=== PATIENT | female | born 1955 | race Caucasian/White ===

== ENCOUNTER 2021-08-22 16:47 | Emergency (ER) | payer OTHER ==
--- OUTSIDE RECORDS SUMMARY | 2021-08-22 16:52 | XMS REPORT | Continuity of Care Document ---
:1955 Author Organization [facility] t Address [address] [place] [address] Care Team Providers Name Role Phone Julia Primary Care Physician Kait Treviño MA Attending Clinician Unavailable Emre VALE Attending Clinician Payers Payer Name Policy Type Policy Number Effective Date Expiration Date S ource Problems Condition Condition Condition Status Onset Resolution Last Treating Co mments Source Name Details Category Date Date Treatment Clinician Date Vaginal Vaginal Disease Active 2020-06 Univers atrophy atrophy 0-17 ity of 00:00: [place] 00 Medical Branch Osteopenia Osteopenia Disease Active 2020-06 U nivers , , 0-17 [place]specif[place] 00 [place] dical Branch Allergies, Adverse Reactions, Alerts Allergy Allergy Status Severity Reaction(s) Onset Inactive Treating Comm ents Source Name Type Date Date Clinician Ciproflo Propensi Active Swelling 2020-06 Univ ers xacin ty to 0-14 ity of (Bulk) adverse 00:00: [place] reaction 00 Medical s Branch Cephalex Propensi Active Swelling 2020-06 Univ ers in ty to 0-14 ity of adverse 00:00: [place] reaction 00 Medical s Branch Social History Social Habit Start Date Stop Date Quantity Comments Source Exposure to Not sure University of SARS-CoV-2 [facility] (event) Branch Tobacco use and 2021-03-23 2021-03-23 Never used Universit y of exposure 00:00:00 00:00:00 [facility] Alcohol intake 2021-03-23 2021-03-23 Current drinker Unive rsity of 00:00:00 00:00:00 of alcohol [facility] (finding) Branch Sex Ass[birth year] [facility] 00:00:00 00:00:00 Smoking Status Start Date Stop Date Source Tobacco smoking consumption Meth [place] [facility] unknown Never smoker [facility] Branch Medications Ordered Filled Start Stop Current Ordering Indication Dosage Frequency Signature Comments Components Source Medication Medication Date Date Medication? Clinician (SIG) Name Name estradioL 2020-06 Yes [id number] 2g Insert 2 g Univers 0.01 % (0.1 0-22 into [place] mg/gram[place] bed[place] Medical cream Every Branch night for 2 weeks, then every other night for 2 weeks, then 2-3 times per week estradioL 2020-06 Yes [id number] 2g Insert 2 g Univers 0.01 % (0.1 0-22 into it[place] of mg/gram) 00:[place] vaginal 00 bedtime. Medical cream Every Branch night for 2 weeks, then every other night for 2 weeks, then 2-3 times per week ascorbic 2020-06 Yes Take by Unive rs acid 0-14 mouth. ity of (VITAMIN C 14:18: [place] ORAL) [address] [place] [address] calcium 2020-06 Yes Take by Univer s carbonate/v 0-14 mouth. ity of itamin D3 14:18: [place] ([place] [address] Medical D-3 ORAL) [place] CALCIUM 2020-06 Yes Take by Univer s ORAL 0-14 mouth. ity of 14:18: [address] tioconazole 2020-06 Yes Insert Univ ers (VAGISTAT-1 0-14 into ity of VAGINAL) 14:18: vagina. [address] ascorbic 2020-06 Yes Take by Unive rs acid 0-14 mouth. ity of (VITAMIN C 14:18: [place] ORAL) [address] [place] [address] calcium 2020-06 Yes Take by Univer s carbonate/v 0-14 mouth. ity of itamin D3 14:18: [place] (VITAMIN Medical D-3 ORAL) [place] CALCIUM 2020-06 Yes Take by Univer s ORAL 0-14 mouth. ity of 14:18: [address] tioconazole 2020-06 Yes Insert Univ ers (VAGISTAT-1 0-14 into ity of VAGINAL) 14:18: vagina. [address] ascorbic 2020-06 Yes Take by Unive rs acid 0-14 mouth. ity of (VITAMIN C 14:18: [place] ORAL) [address] [place] [address] calcium 2020-06 Yes Take by Univer s carbonate/v 0-14 mouth. ity of itamin D3 14:18: [place] (VITAMIN Medical D-3 ORAL) [place] CALCIUM 2020-06 Yes Take by Univer s ORAL 0-14 mouth. ity of 14:18: [address] tioconazole 2020-06 Yes Insert Univ ers (VAGISTAT-1 0-14 into ity of VAGINAL) 14:18: vagina. [address] conjugated 2020-06- No [id number] 1g Insert 1 g Univers estrogens 0-14 10-22 into ity of 0.625 00:00: 00:00 vagina at [place] mg/gram 00 :00 bedtime. Medical vaginal Nightly Branch cream for 2 weeks, then 3 times/week for 2 weeks, then 1-2 times per week. famotidine Yes Univers 20 mg 9-26 ity of tablet 00:00: [address] famotidine Yes Univers 20 mg 9-26 ity of tablet 00:00: [address] famotidine 0 Yes Univers 20 mg 9-26 ity of tablet 00:00: [address] doxycycline 2020-0 2020- No Unive rs hyclate 100 8-20 10-14 ity of mg capsule 00:00: 00:00 [place] 00 :00 [facility] LORazepam 1 Yes Univer s mg tablet 8-16 ity of 00:00: [address] LORazepam 1 0 Yes Univer s mg tablet 8-16 ity of 00:00: [address] LORazepam 1 0 Yes Univer s mg tablet 8-16 ity of 00:00: [address] predniSONE 2020-0 2020- No Univer s 20 mg 8-16 10-14 ity of tablet 00:00: 00:00 [place] 00 :00 [facility] citalopram 0 Yes Univers 10 mg 7-28 ity of tablet 00:00: [address] citalopram 2020-0 Yes Univers 10 mg 7-28 ity of tablet 00:00: [address] citalopram 0 Yes Univers 10 mg 7-28 ity of tablet 00:00: [address] Vital Signs Vital Name Observation Time Observation Value Comments Source Systolic blood 2021-03-23 19:14:00 140 mm[Hg] Univer sity of pressure [facility] Diastolic blood 2021-03-23 19:14:00 87 mm[Hg] Unive rsity of pressure [facility] Heart rate 2021-03-23 19:14:00 60 /min [facility] Body temperature 2021-03-23 19:14:00 36.78 [facility] 2021-03-23 19:14:00 [facility] Body height 2021-03-23 19:14:00 157.5 cm [facility] Body weight 2021-03-23 19:14:00 50.44 kg [facility] BMI 2021-03-23 19:14:00 20.34 kg/m2 [facility] Procedures Procedure Date / Time Performed Performing Clinician [facility] e EXTERNAL MAMMOGRAM 2020-01-22 00:00:00 Doctor Unassigned, No Uni versity of [facility] EXTERNAL PAP SMEAR 2020-01-20 13:00:00 Doctor Unassigned, No Uni versity of [facility] Encounters Start End Encounter Admission Attending Care Care Encounter Source Date/Time Date/Time Type Type Clinicians Facility Department ID 2021-06-21 2021-06-21 Abstract CORY Treviño [id number] Univers 00:00:00 00:00:00 Bertha BLUM [id number] [id number] [id number] [address] 2021-06-21 2021-06-21 Case CORY Treviño [id number] Univers 00:00:00 00:00:00 Management Bertha BLUM [id number] [id number] [id number] [address] 2021-03-23 2021-03-23 Office Josselyn Andrea MOULTON [id number] [facility] 14:00:00 14:56:20 Visit DRE [id number] it y of WOMEN'S [id number] [facility] [id number] [facility] 134 Branch Results This patient has no known results.
[2021-08-22] MEDS ORDERED: MORPHINE 4 MG/ML SYR ONE (17:04)
[2021-08-22] MEDS ORDERED: ONDANSETRON 4 MG/2 ML VIAL ONE (17:04)
[2021-08-22 17:17] LABS: Absolute Lymphocytes (CBC) 2.5 K/uL (0.7-4.9); Hematocrit 41.2 % (36.0-45.0); Lymphocytes % 36.4 % (15.3-44.8); MPV 6.6 fL (7.6-11.3); RBC Red Blood Cell Count 4.51 M/uL (3.86-4.86)
[2021-08-22 17:41] LABS: Albumin 4.3 g/dL (3.4-5.0); Bilirubin Total 0.5 mg/dL (0.2-1.0); Potassium 3.4 mmol/L (3.5-5.1); Protein, Total 8.3 g/dL (6.4-8.2)
[2021-08-22 17:48] LABS: Urine Blood 2+ (Negative); Urine Glucose Negative (Negative); Urine Protein Negative (Negative); Urine Specific Gravity 1.015 (1.005-1.030); Urine pH 7.5 (5.0-7.0)
[2021-08-22 18:03] LABS: Urine Bacteria <20 /HPF (<20); Urine RBC <5 /HPF (NONE SEEN)
--- NOTE | 2021-08-22 18:03 | RAD REPORT ---
EXAM DESCRIPTION: CT - Stone Protocol - 08/22/2021 5:55 pm CLINICAL HISTORY: Flank pain. lower back pain COMPARISON: CT ABD PELVIS W WO CONTRAST dated 10/07/2014 TECHNIQUE: Axial images were obtained without oral or IV contrast. Lack of contrast limits solid org an and vascular assessment. The [id number] spans the entirety of the system partially obscuring uppermost abdomen and lung bases. Coronal reformatted images were obtained and reviewed. All CT scans are performed using dose optimization technique as appropriate and may include automated exposure control or mA/KV adjustment according to patient size. FINDINGS: The lower lung urena are clear. Multiple hepatic cysts noted. Spleen is unremarkable. The pancreas and adrenal glands are normal. No pathologic lymphadenopathy in the abdomen or pelvis. Punctate stones are seen in inferior left kidney without hydronephrosis. No right renal stone or hydr onephrosis seen. No bowel obstruction, free air, free fluid or abscess. Moderate stool is present throughout the colon .The appendix is not identified as a discrete structure, however, no secondary findings of appendicit is are identified. Postsurgical hardware is in place lower lumbar spine with 5 mm degenerative anterolisthesis L4 on 5. IMPRESSION: Punctate calculi are present inferior calyx left kidney without hydronephrosis.
[2021-08-22] MEDS ORDERED: POTASSIUM 25 MEQ EFFERV TAB ONE (18:22)
[2021-08-22] MEDS ORDERED: LIDOCAINE 4% PATCH ONE (18:36)
--- NOTE | 2021-08-22 18:45 | ER ---
Nurse's Notes [facility] Name: Rosita Beach Age: 66 yrs Sex: Female : 1955 Arrival Date: 08/22/2021 Time: 16:55 Bed 18 Private MD: Diagnosis: Lumbago with sciatica, right side Presentation: 08/22 16:55 Chief complaint: EMS states: "pt is reporting sever lower back pain for the past 2 jd3 days. the pain travels from her lower back into her right hip and down into her right leg. today she reports the pain is bad to the point she can't walk.". Coronavirus screen: At this time, the client does not indicate any symptoms associated with coronavirus-19. Ebola Screen: No symptoms or risks identified at this time. Initial Sepsis Screen: Does the patient meet any 2 criteria? No. Patient's initial sepsis screen is negative. Does the patient have a suspected source of infection? No. Patient's initial sepsis screen is negative. Risk Assessment: Do you want to hurt yourself or someone else? Patient reports no desire to harm self or others. Onset of symptoms was August 20, 2021. 16:55 Method Of Arrival: EMS: [facility] jd3 16:55 Acuity: ANNA 3 jd3 Historical: - Allergies: 16:58 Cipro PO; jd3 16:58 Keflex; jd3 16:58 hydrocodone; jd3 - PMHx: 16:58 Anxiety; Depressive disorder; jd3 - PSHx: 16:58 back; jd3 - Immunization history:: Adult Immunizations up to date, Client reports having NOT received the Covid vaccine. Flu vaccine is up to date. - Social history:: Smoking status: Patient denies any tobacco usage or history of. Screenin:19 Abuse screen: Denies threats or abuse. Nutritional screening: No deficits noted. jd3 Tuberculosis screening: No symptoms or risk factors identified. Fall Risk Ambulatory Aid- None/Bed Rest/Nurse Assist (0 pts). Gait- Normal/Bed Rest/Wheelchair (0 pts) Mental Status- Oriented to own ability (0 pts). Total Dwyer Fall Scale indicates No Risk (0-24 pts). Assessment: 17:17 General: Appears in no apparent distress. comfortable, Behavior is calm, cooperative, jd3 appropriate for age. Pain: Complains of pain in low back area, right hip and right leg Quality of pain is described as sharp. Neuro: Level of Consciousness is awake, alert, obeys commands, Oriented to person, place, time, situation. Cardiovascular: Capillary refill < 3 seconds Patient's skin is warm and dry. Respiratory: Airway is patent Respiratory effort is even, unlabored, Respiratory pattern is regular, symmetrical, Denies cough, shortness of breath. GI: No signs and/or symptoms were reported involving the gastrointestinal system. : No signs and/or symptoms were reported regarding the genitourinary system. EENT: No signs and/or symptoms were reported regarding the EENT system. Derm: Skin is intact, Skin is dry, Skin is normal, Skin temperature is warm. Musculoskeletal: Circulation, motion, and sensation intact. Range of motion: limited in right hip. 18:25 Reassessment: Patient appears in no apparent distress at this time. Patient and/or jd3 family updated on plan of care and expected duration. Pain level reassessed. Patient is alert, oriented x 3, equal unlabored respirations, skin warm/dry/pink. Patient states feeling better. 19:00 Reassessment: Patient appears in no apparent distress at this time. Patient and/or jd3 family updated on plan of care and expected duration. Pain level reassessed. Patient is alert, oriented x 3, equal unlabored respirations, skin warm/dry/pink. Patient states feeling better. Vital Signs: 16:58 BP 143 / 69; Pulse 95; Resp 18 S; Temp 98.9(TE); Pulse Ox 100% on R/A; Weight 48.08 kg j (R); Height 5 ft. 2 in. (157.48 cm) (R); Pain 10/10; 18:25 BP 111 / 71; Pulse 89; Resp 18 S; Pulse Ox 100% on R/A; Pain 6/10; jd3 16:58 Body Mass Index 19.39 (48.08 kg, 157.48 cm) [facility] ED Course: 16:55 Patient arrived in ED. [facility] 16:55 Sav Drake RN is Primary Nurse. [facility] 16:55 Bryan Story PA is PHCP. cp 16:55 Sarbjit Damon DO is Attending Physician. cp 16:57 Triage completed. jd3 16:59 Arm band placed on. jd3 17:11 Inserted saline lock: 20 gauge in right antecubital area, using aseptic technique. mw1 17:19 Patient has correct armband on for positive identification. Bed in low position. Call jd3 light in reach. Side rails up X 1. Adult w/ patient. 17:55 CT Stone Protocol In Process Unspecified. EDMS 18:59 No provider procedures requiring assistance completed. IV discontinued, intact, jd3 bleeding controlled, No redness/swelling at site. Pressure dressing applied. Administered Medications: 17:15 Drug: morphine 4 mg Route: IVP; Site: right antecubital; jd3 18:15 Follow up: Response: No adverse reaction; RASS: Alert and Calm (0) jd3 17:15 Drug: Zofran (Ondansetron) 4 mg Route: IVP; Site: right antecubital; jd3 18:15 Follow up: Response: No adverse reaction jd3 18:24 Drug: Potassium Effervescent Tablet 50 mEq Route: PO; jd3 18:36 Follow up: Response: No adverse reaction jd3 18:36 Drug: Lidoderm Patch 5 % (700 mg/patch) 1 patches Route: Topical; Site: affected area; jd3 19:00 Follow up: Response: No adverse reaction jd3 Outcome: 18:44 Discharge ordered by MD. cp 18:59 Discharged to home via wheelchair, with family. jd3 18:59 Condition: stable 18:59 Discharge instructions given to patient, family, Instructed on discharge instructions, follow up and referral plans. medication usage, Demonstrated understanding of instructions, follow-up care, medications, Prescriptions given X 3. 19:00 Patient left the ED. jd3 Signatures: Dispatcher [employer] EDMN Bryan Story PA PA cp Waits, Michael mw1 Sav Drake RN RN jd3 Corrections: (The following items were deleted from the chart) 17:21 16:55 Acuity: ANNA 4 jd3 jd3 18:26 18:25 BP 111 / 71; Pulse 89bpm; Resp 18bpm; Spontaneous; Pulse Ox 100% RA; jd3 jd3
--- NOTE | 2021-08-22 18:45 | EDPHYS ---
Physician Documentation [facility] Name: Rosita Beach Age: 66 yrs Sex: Female : 1955 Arrival Date: 08/22/2021 Time: 16:55 Bed 18 Private MD: ED Physician Sarbjit Damon HPI: 08/22 17:00 This 66 yrs old Female presents to ER via EMS with complaints of Low Back Pain. cp 17:00 The patient presents with pain that is chronic, with no known mechanism of injury, cp became worse 2 days ago. The symptoms are located in the low back. 17:00 The pain radiates to the right leg and right hip. cp 17:00 The problem was sustained from a chronic condition, the patient has had previous back cp surgery. Modifying factors: the patient symptoms are aggravated by any movement, walking. Associated signs and symptoms: Pertinent negatives: abdominal pain, chest pain, constipation, fever, incontinence, numbness, urinary retention, weakness. Severity of symptoms: in the emergency department the symptoms are unchanged, despite EMS interventions. Historical: - Allergies: 16:58 Cipro PO; jd3 16:58 Keflex; jd3 16:58 hydrocodone; jd3 - PMHx: 16:58 Anxiety; Depressive disorder; jd3 - PSHx: 16:58 back; jd3 - Immunization history:: Adult Immunizations up to date, Client reports having NOT received the Covid vaccine. Flu vaccine is up to date. - Social history:: Smoking status: Patient denies any tobacco usage or history of. ROS: 17:05 Constitutional: Negative for body aches, chills, fever, poor PO intake. cp 17:05 Eyes: Negative for injury, pain, redness, and discharge. cp 17:05 ENT: Negative for drainage from ear(s), ear pain, sore throat, difficulty swallowing, difficulty handling secretions. 17:05 Cardiovascular: Negative for chest pain, edema, palpitations. 17:05 Respiratory: Negative for cough, shortness of breath, wheezing. 17:05 Abdomen/GI: Negative for abdominal pain, nausea, vomiting, and diarrhea, bowel incontinence. 17:05 Back: Positive for pain at rest, pain with movement, of the low back area. 17:05 : Negative for urinary symptoms, bladder incontinence. 17:05 MS/extremity: Positive for pain, of the right hip and right leg, Negative for decreased range of motion, paresthesias. 17:05 Neuro: Negative for altered mental status, headache, weakness. 17:05 All other systems are negative. Exam: 17:10 Constitutional: The patient appears in no acute distress, alert, awake, cp non-diaphoretic, non-toxic, well developed, well nourished, in obvious pain, uncomfortable. 17:10 Head/Face: Normocephalic, atraumatic. cp 17:10 Eyes: Periorbital structures: appear normal, Conjunctiva: normal, no exudate, no injection, Sclera: no appreciated abnormality, Lids and lashes: appear normal, bilaterally. 17:10 ENT: External ear(s): are unremarkable, Nose: is normal, Mouth: Lips: moist, Oral mucosa: moist, Posterior pharynx: Airway: no evidence of obstruction, patent. 17:10 Chest/axilla: Inspection: normal, Palpation: is normal, no crepitus, no tenderness. 17:10 Cardiovascular: Rate: normal, Rhythm: regular. 17:10 Respiratory: the patient does not display signs of respiratory distress, Respirations: normal, no use of accessory muscles, no retractions, labored breathing, is not present, Breath sounds: are clear throughout, no decreased breath sounds, no stridor, no wheezing. 17:10 Abdomen/GI: Inspection: abdomen appears normal, Palpation: abdomen is soft and non-tender, in all quadrants. 17:10 Back: pain, that is severe, of the lumbar area and right low back, ROM is painful, with all movement. 17:10 Neuro: Motor: moves all fours, strength is normal, Sensation: is normal. Vital Signs: 16:58 BP 143 / 69; Pulse 95; Resp 18 S; Temp 98.9(TE); Pulse Ox 100% on R/A; Weight 48.08 kg jd3 (R); Height 5 ft. 2 in. (157.48 cm) (R); Pain 10/10; 18:25 BP 111 / 71; Pulse 89; Resp 18 S; Pulse Ox 100% on R/A; Pain 6/10; jd3 16:58 Body Mass Index 19.39 (48.08 kg, 157.48 cm) jd3 MDM: 16:57 Patient medically screened. cp 17:00 Differential diagnosis: strain, sciatica, contusion, Herniated disc cauda equina, cp spinal stenosis. 18:44 Data reviewed: vital signs, nurses notes, lab test result(s), radiologic studies, CT cp scan. 18:44 Counseling: I had a detailed discussion with the patient and/or guardian regarding: the cp historical points, exam findings, and any diagnostic results supporting the discharge/admit diagnosis, lab results, radiology results, the need for outpatient follow up, a family practitioner, to return to the emergency department if symptoms worsen or persist or if there are any questions or concerns that arise at home. Response to treatment: the patient's symptoms have markedly improved after treatment, and as a result, I will discharge patient. ED course: VSS. Pain markedly improved with meds. CT results negative for acute findings. Will discharge to home for continued monitoring. 08/22 16:57 Order name: CBC with Diff; Complete Time: 17:25 cp 08/22 17:25 Interpretation: Normal except: MCV 91.3; MPV 6.6. cp 08/22 16:57 Order name: CMP; Complete Time: 18:14 cp 08/22 18:36 Interpretation: Normal except: K 3.4; GLUC 110; GFR 88; AST 12; TP 8.3; GLOB 4.0. cp 08/22 16:57 Order name: Lipase; Complete Time: 18:14 cp 08/22 16:57 Order name: Urine Microscopic Only; Complete Time: 18:14 cp 15 17:25 Order name: CT Stone Protocol; Complete Time: 18:14 cp 08/22 17:48 Order name: Urine Dipstick-Ancillary; Complete Time: 18:14 EDMS 08/22 18:36 Interpretation: Normal except: UKET 1+; UBLD 2+; UPH 7.5. cp 08/22 16:57 Order name: IV Saline Lock; Complete Time: 17:16 cp 08/22 16:57 Order name: Labs collected and sent; Complete Time: 17:16 cp 08/22 16:57 Order name: Urine Dipstick-Ancillary (obtain specimen); Complete Time: 17:50 cp Administered Medications: 17:15 Drug: morphine 4 mg Route: IVP; Site: right antecubital; jd3 18:15 Follow up: Response: No adverse reaction; RASS: Alert and Calm (0) jd3 17:15 Drug: Zofran (Ondansetron) 4 mg Route: IVP; Site: right antecubital; jd3 18:15 Follow up: Response: No adverse reaction jd3 18:24 Drug: Potassium Effervescent Tablet 50 mEq Route: PO; jd3 18:36 Follow up: Response: No adverse reaction jd3 18:36 Drug: Lidoderm Patch 5 % (700 mg/patch) 1 patches Route: Topical; Site: affected area; jd3 19:00 Follow up: Response: No adverse reaction jd3 Disposition: 21:50 Co-signature as Attending Physician, Sarbjit Damon DO I agree with the assessment and ms3 plan of care. Disposition Summary: 08/22/21 18:44 Discharge Ordered Location: Home cp Problem: an acute exacerbation cp Symptoms: have improved cp Condition: Stable cp Diagnosis - Lumbago with sciatica, right side cp Followup: cp - With: Private Physician - When: 2 - 3 days - Reason: Recheck today's complaints Discharge Instructions: - Discharge Summary Sheet cp - Sciatica cp - Back Exercises cp Forms: - Medication Reconciliation Form cp - Thank You Letter cp - Antibiotic Education cp - Prescription Opioid Use cp Prescriptions: - Lidoderm 5 % Topical adhesive patch,medicated - apply 1 patch by TOPICAL route once daily; 1 box; Refills: 0, Product Selection cp Permitted - Medrol (Richard) 4 mg Oral Tablets, Dose Pack - take 1 tablet by ORAL route as directed - follow package instructions; 1 cp packet; Refills: 0, Product Selection Permitted - Cyclobenzaprine 10 mg Oral Tablet - take 1 tablet by ORAL route every 8 hours As needed; 20 tablet; Refills: 0, cp Product Selection Permitted Signatures: Dispatcher [employer] EDMS Bryan Story PA PA cp Sav Drake RN RN Sarbjit Lee DO DO ms3 Corrections: (The following items were deleted from the chart) 18:36 18:14 Normal except: K 3.4; GLUC 110; GFR 88. cp cp
[2021-08-22 19:55] VITALS: TEMP 98.9; O2SAT 100
[2021-08-22 19:56] VITALS: BP 111/71
== END 2021-08-22 19:00 | disposition home or self-care (01) ==
LOC: ER 16:47
DX: M54.41 Lumbago with sciatica, right side (principal); Z88.1 Allergy status to other antibiotic agents; Z88.5 Allergy status to narcotic agent
CPT/HCPCS: 85025; 36415; 83690; 80053; 76377; 74176; 96375; 96374; 99284; J2405; 81003; 81015

== ENCOUNTER 2022-05-17 12:00 | Day surgery (SDC) | payer OTHER ==
[2022-05-17] MEDS ORDERED: NA CHLORIDE 0.9% 500 ML ONE (12:21)
[2022-05-17] MEDS ORDERED: FENTANYL CITR 100 MCG/2 ML ONE (12:24)
[2022-05-17] MEDS ORDERED: FLUMAZENIL 0.1 MG/ML (5 mL VIAL) IV ONE (12:24)
[2022-05-17] MEDS ORDERED: MIDAZOLAM HCL 5 ML ONE (12:25)
[2022-05-17] MEDS ORDERED: PHENOL 1.4% ORAL SPRAY 180ML ONE (12:25)
[2022-05-17] MEDS ORDERED: ATROPINE SULF 1 MG/10 ML SYR IV ONE (12:25)
[2022-05-17] MEDS ORDERED: LIDOCAINE VISCOUS 2% SOLN 15 ML UDC ONE ×2 (12:25)
--- NOTE | 2022-05-17 14:39 | OP ---
Date of Procedure: 05/17/2022 Surgeon: MARCIA RAY Procedure Performed: Transesophageal echocardiogram. Indication: Evaluation of mitral valve regurgitation. Complications: None. Bleeding: None. Description Of Procedure: After risks, benefits, alternatives were explained, the patient agreed to the procedure and signed informed consent. The patient was brought into the OR and after appropriate time out, we used viscous lidocaine to numb the back of her throat and then we gave 2 mg of Versed a nd 50 mg of fentanyl, and then BOYD probe was inserted without difficulty. BOYD was performed and then probe was removed without complications. The patient was sent to recovery in stable condition. Conclusion: Moderate mitral valve regurgitation. Recommendations: Medical management and close observation. SR/MODL Voice ID: [id number] Report ID: [id number]
[2022-05-17 14:41] VITALS: BP 124/64; O2SAT 100
--- NOTE | 2022-05-18 07:24 | TEE ---
TRANSESOPHAGEAL ECHOCARDIOGRAM REPORT CARDIOLOGY DEPARTMENT DATE OF STUDY: 05/17/2022 HEIGHT: 5ft, 2in WEIGHT: 105 lbs DIAGNOSIS: MITRAL REGURGITATION PACKING CLERK COMMENTS: CARDIAC HISTORY: CATHERIZATION: SURGERY: PROSTHETIC VALVE: PACEMAKER: 2 DIMENSIONAL ASSESSMENT: RIGHT ATRIUM: NORMAL LEFT ATRIUM: NORMAL RIGHT VENTRICLE: NORMAL LEFT VENTRICLE: NORMAL TRICUSPID VALVE: MILD TRICUSPID REGURGITATION MITRAL VALVE: MILD MITRAL REGURGITATION PULMONIC VALVE: NORMAL AORTIC VALVE: NORMAL PERICARDIAL EFFUSION: NONE AORTIC ROOT: NORMAL EJECTION FRACTION: 55-60 % LEFT VENTRICULAR WALL MOTION: NORMAL DOPPLER/COLOR FLOW: SEE BELOW COMMENTS: 1. TRANSESOPHAGEAL ECHOCARDIOGRAM PROBE INSERTED WITHOUT DIFFICULTY 2. NORMAL LEFT VENTRICULAR EJECTION FRACTION 55-60% 3. MILD TO MODERATE MITRAL REGURGITATION 4. MITRAL VALVE PROLAPSE 5. MILD TRICUSPID REGURGITATION TECHNOLOGIST: GIORGIO RIVAS
== END 2022-05-17 12:35 | disposition home or self-care (01) ==
LOC: EKG 12:00
PROVIDERS: ATTEND Internal Medicine
DX: I34.0 Nonrheumatic mitral (valve) insufficiency (principal); R07.9 Chest pain, unspecified; Q25.29 Other atresia of aorta; Z87.891 Personal history of nicotine dependence; Z82.49 Family history of ischemic heart disease and other diseases of the circulatory system
CPT/HCPCS: 93312; J2250; J3010; J7040; J0461

== ENCOUNTER 2023-10-23 08:46 | Day surgery (SDC) | payer OTHER ==
[2023-10-18 10:36] LABS: Absolute Monocytes 0.6 K/uL (0.1-1.3); Absolute Neutrophil 3.5 K/uL (1.8-8.0); Basophils % 0.6 % (0-1.3); Eosinophils % 0.5 % (0-4.4); Hematocrit 38.7 % (36.0-45.0); Lymphocytes % 32.8 % (15.3-44.8); MCH 31.8 pg (27.0-35.0); MCHC 33.7 g/dL (32.0-36.0); MCV 94.5 fL (80-100); MPV 6.2 fL (7.6-11.3); Neutrophils % 57.1 % (41.7-73.7); Platelets 295 thou/uL (152-406); Red Cell Distribution Width 13.1 % (12.1-15.2)
[2023-10-18 10:50] LABS: Anion Gap 6.1 mEq/L (5.0-15.0); Potassium 4.1 mEq/L (3.5-5.1)
[2023-10-18 10:55] LABS: PT Prothrombin Time 10.8 SECONDS (9.5-12.5); PTT, Activated Partial Thromb 33.4 SECONDS (24.3-36.9); Protime INR 0.98
--- NOTE | 2023-10-18 12:35 | RAD REPORT ---
EXAM DESCRIPTION: RAD - Chest Pa And Lat (2 Views) - 10/18/2023 10:35 am CLINICAL HISTORY: Pre op pending knee meniscectomy. Hypertension COMPARISON: Chest Pa And Lat (2 Views) dated 03/21/2022; CHEST PA AND LAT 2 VIEW dated 11/17/2013; CH EST PA AND LAT 2 VIEW dated 06/05/2011; CHEST PA AND LAT 2 VIEW dated 07/11/2007 TECHNIQUE: PA and lateral views of the chest were obtained. FINDINGS: The lungs are clear. Heart size is normal and central vasculature is within normal limits. No pleural effusion or pneumothorax seen. No acute bony finding noted. IMPRESSION: No acute cardiopulmonary process.
[2023-10-23] MEDS ORDERED: ONDANSETRON 4 MG/2 ML VIAL ONE (09:10)
[2023-10-23] MEDS ORDERED: LIDOCAINE 1% MPF 5 ML VIAL ONE (09:10)
[2023-10-23] MEDS ORDERED: propofoL 200 MG/20 ML VIAL IV ONE (09:10)
[2023-10-23] MEDS ORDERED: MIDAZOLAM HCL 2 MG/2 ML INJ ONE (09:11)
[2023-10-23] MEDS ORDERED: FENTANYL CITR 100 MCG/2 ML ONE (09:11)
[2023-10-23] MEDS: Ringers Lactate 1,000 ML IV ONE (09:13)
[2023-10-23] MEDS: CLINDAMYCIN 600MG/D5W 50 ML IV ONE (10:11)
[2023-10-23] MEDS: BUPIVACAINE 0.25% PF 30 ML VIAL ONE (10:12)
[2023-10-23] MEDS ORDERED: KETOROLAC 30 MG/ML INJ ONE (10:22)
--- NOTE | 2023-10-23 11:13 | P.BOP ---
Preoperative diagnosis: left knee medial meniscus tear, left knee osteoarthritis Postoperative diagnosis: same Primary procedure: left knee arthroscopic partial medial meniscectomy [employer]: NONE,NONE Estimated blood loss: 3 cc Specimen: none Findings: see dictation Anesthesia: General Complications: None Implants: none Fluids & blood products: per anesthesia record Transferred to: Recovery Room Condition: Good
[2023-10-23 11:32] VITALS: O2SAT 100
[2023-10-23 13:12] VITALS: BP 136/80; TEMP 97
--- NOTE | 2023-10-23 22:48 | OP ---
Date of Procedure: 10/23/2023 Surgeon: Edu Matias MD Preoperative Diagnoses: 1.Left knee medial meniscus tear. 2.Left knee osteoarthritis. Postoperative Diagnoses: 1.Left knee medial meniscus tear. 2.Left knee osteoarthritis. Procedure Performed: Left knee arthroscopic partial medial meniscectomy. Anesthesia: General LMA. Fluids: Per Anesthesia record. Estimated Blood Loss: 3 cc. Complications: None. Implants: None. Indication For Procedure: Rosita is a 68-year-old female who presented to my clinic with signs, sympt oms, and MRI findings consistent with left knee medial meniscus tear as well as the underlying osteoa rthritis. The patient failed conservative treatment measures including home exercise program, cortic osteroid injection. The patient continued to have pain and limitations that affected her activities of daily living. I discussed with the patient at length risks and benefits associated with operative and nonoperative treatment measures. They expressed understanding and elected to proceed with opera tive treatment. Description Of Procedure: After informed consent was obtained, the patient was identified in the pre op holding area. Left lower extremity was marked. The patient was then brought back to the operativ e room, transferred to the operating table in supine fashion, placed under general LMA anesthesia. T he left lower extremity was then prepped and draped in usual sterile fashion. A time-out was initiat ed. The correct patient and procedure were confirmed and identified. The patient did receive preope rative prophylactic antibiotics. The left lower extremity was then exsanguinated using an Esmarch. The tourniquet was then inflated to 250 mmHg. Standard anteromedial and anterolateral portals were c reated. Arthroscope was brought in via the anterolateral portal to the patellofemoral joint and diag nostic arthroscopy was performed. 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 The arthroscope was brought into both medial and lateral gutters. There were no loose bodies found within the gutters. The arthroscope was then brought to the medial compartment where the patient was noted to have a complex tear of the posterior horn and body of the medial meni scus. Partial medial meniscectomy was performed using arthroscopic biter and meniscal shaver to a sm ooth meniscal borders. 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 Arthroscope was then brought in the intercondylar notch. The patie nt was noted to have an intact ACL and PCL, which were stable to probe. The arthroscope was then bro ught to the lateral compartment where the patient was noted to have pristine cartilage of the lateral femoral condyle, lateral tibial plateau, and intact lateral meniscus stable to probe. The arthrosco pic instruments were then removed without complication. Wounds were then irrigated thoroughly with n ormal saline. Skin and portals were approximated using 4-0 Monocryl. Sterile dressings were applied . The patient was awakened and transferred to PACU in stable condition. Postoperative Plan: The patient will be weightbearing as tolerated on the left lower extremity. y sical Therapy will be consulted next week for mobilization. The patient will follow up in 1 week for wound check. CV/MODL Voice ID: [id number] Report ID: [id number]
== END 2023-10-23 12:50 | disposition home or self-care (01) ==
LOC: OR 08:46
PROVIDERS: ATTEND Orthopaedic Surgery Sports Medicine
PROC: 0SBD4ZZ Excision of Left Knee Joint, Percutaneous Endoscopic Approach (ICD-10-PCS; principal; 2023-10-23 10:30)
DX: S83.242A Other tear of medial meniscus, current injury, left knee, initial encounter (principal); M17.12 Unilateral primary osteoarthritis, left knee
CPT/HCPCS: 85025; 80048; 36415; 85610; 85730; 71046; 29881; J2704; J2001; J2250; J3010; J2405; J7120